=== PATIENT | female | born 1970 | race Caucasian/White ===

== ENCOUNTER → 2021-12-10 | Day surgery (SDC) | payer OTHER ==
[~2021-12-10] VITALS: Ht 177.8 cm; Wt 87.1 kg
[~2021-12-10] MED LIST: BIOTIN1000 MCG PO; CENTRUM WOMEN1 EACH PO; CRANBERRY425 MG PO; ESTROVEN CMPLT M4 MG PO; ESTROVEN MAX400 MCG PO; GARLIC OIL1000 MG PO; LISINOPRIL2.5 MG PO; MAGNESIUM250 M1 PO; PRILOSEC20 MG PO; VITAMIN B122500 MCG PO; VITAMIN E90 MG PO
[2021-12-10 09:19] LABS: HCT 41.5 % (37.0-47.0); HGB 13.9 g/dl (12.5-16.0); MCH 30.2 pg (25.0-31.0); MCHC 33.5 g/dL (32.0-36.0); MPV 9.9 fL (6.0-9.5); RBC 4.61 M/uL (4.20-5.40); RDW 13.9 % (11.5-14.0); WBC 7.1 K/uL (4.0-10.5)
[2021-12-10 10:38] LABS: ALBUMIN 3.7 g/dL (3.4-5.0); BUN/CREAT RATIO (CALC) 10.3 RATIO; CREATININE 0.97 mg/dL (0.51-0.95); GLOBULIN (CALCULATION) 3.6 g/dL; POTASSIUM 3.7 mmol/L (3.5-5.1); TOTAL PROTEIN 7.3 g/dL (6.4-8.2)
[2021-12-10 21:59] LABS: BILIRUBIN - TOTAL 0.3 mg/dL (0.2-1.0)
== END | disposition home or self-care (01) ==
LOC: FAS 06:55
PROVIDERS: Surgery
DX: Z12.11 Encounter for screening for malignant neoplasm of colon (principal); K31.9 Disease of stomach and duodenum, unspecified; K29.70 Gastritis, unspecified, without bleeding; K57.30 Diverticulosis of large intestine without perforation or abscess without bleeding; K63.89 Other specified diseases of intestine; I10 Essential (primary) hypertension; Z80.0 Family history of malignant neoplasm of digestive organs; Z88.5 Allergy status to narcotic agent; Z88.2 Allergy status to sulfonamides
CPT/HCPCS: 43239; G0121; 36415; 80053; J2704; J7120